=== PATIENT | male | born 1965 | race American Indian/Alaskan Native ===

== ENCOUNTER 2017-11-21 00:25 | Inpatient (IN) | payer MEDICARE ==
[2017-11-21] MEDS ORDERED: NACL 0.9% 1000 ML 1,000 ML IV ONE (00:44)
--- NOTE | 2017-11-21 00:51 | Emergency Department Report ---
ED General Adult HPI - General Chief complaint: Fever Stated complaint: FEVER Time Seen by Provider: 11/21/17 00:37 Source: patient, EMS Mode of arrival: Stretcher Limitations: No Limitations - History of Present Illness Initial comments: Patient is 62 years old male with history of end-stage renal disease on hemodialysis, hypertension diabetes and CVA, presents to the ER with fever started tonight. Patient denied cough, shortness of breath, urinary symptoms. He stated that his initial temperature was 103. - Related Data Allergies Allergy/AdvReac Type Severity Reaction Status Date / Time No Known Allergies Allergy Verified 11/21/17 00:51 ED Review of Systems ROS: Stated complaint: FEVER Other details as noted in HPI Comment: All other systems reviewed and negative Constitutional: chills, fever Respiratory: denies: cough, orthopnea, shortness of breath, SOB with exertion, SOB at rest, wheezing Cardiovascular: denies: chest pain, palpitations, dyspnea on exertion Gastrointestinal: denies: abdominal pain, nausea, vomiting, diarrhea, constipation, hematemesis Genitourinary: denies: urgency, dysuria, frequency, hematuria, discharge, testicular pain, testicular mass Musculoskeletal: denies: back pain, joint swelling Neurological: denies: headache, weakness, numbness, paresthesias, confusion, abnormal gait ED Past Medical Hx - Past Medical History Previous Medical History?: Yes Hx Hypertension: Yes Hx Diabetes: Yes Additional medical history: HF, CVA right side deficits - Surgical History Past Surgical History?: No - Social History Smoking Status: Former Smoker Substance Use Type: None ED Physical Exam - General Limitations: No Limitations General appearance: alert, in no apparent distress - Head Head exam: Present: atraumatic, normocephalic, normal inspection - Eye Eye exam: Present: normal appearance, PERRL, EOMI - ENT ENT exam: Present: normal exam, normal orophraynx, mucous membranes moist - Neck Neck exam: Present: normal inspection, full ROM. Absent: tenderness, meningismus, lymphadenopathy, thyromegaly - Respiratory Respiratory exam: Present: normal lung sounds bilaterally. Absent: respiratory distress, wheezes, rales, rhonchi, stridor, chest wall tenderness - Cardiovascular Cardiovascular Exam: Present: tachycardia - GI/Abdominal GI/Abdominal exam: Present: soft, normal bowel sounds, other (PEG tube in place , no erythema or redness.). Absent: distended, tenderness, guarding, rebound, rigid, organomegaly, mass, bruit, pulsatile mass, hernia - Extremities Exam Extremities exam: Present: normal inspection, full ROM, normal capillary refill. Absent: tenderness, pedal edema - Back Exam Back exam: Present: normal inspection. Absent: CVA tenderness (R), CVA tenderness (L) - Neurological Exam Neurological exam: Present: alert, oriented X3, CN II-XII intact - Skin Skin exam: Present: warm, intact, normal color ED Course Vital Signs 11/21/17 11/21/17 11/21/17 00:40 00:45 00:48 Temperature 99.4 F Pulse Rate 108 H Respiratory 20 18 Rate Blood Pressure 102/55 O2 Sat by Pulse 96 100 Oximetry ED Medical Decision Making - Lab Data Result diagrams: 11/21/17 00:51 11/21/17 00:51 - Radiology Data Radiology results: report reviewed Referring Physician: TACO CERVANTES Patient Name: POORNIMA TITUS Date of : 1965 Sex: Male Report Date: 2017-11-20 Report Status: Finalized Findings [facility] [address] [place] [address] XRay Report Signed Patient: POORNIMA TITUS MR#: [id number] : 1965 Acct:[id number] Age/Sex: 52 / M ADM Date: 11/21/17 Loc: ED Attending Dr: Ordering Physician: TACO CERVANTES Date of Service: 11/21/17 Procedure(s): XR chest 1V ap Accession Number(s): [id number] cc: TACO CERVANTES Fluoro Time In Minutes: FINAL REPORT EXAM: XR CHEST 1V AP HISTORY: Fever/Sepsis TECHNIQUE: A portable view of the chest was submitted. FINDINGS: There is patchy airspace disease throughout much of the right lung compatible with pneumonia. There is a small right-sided effusion. There additional atelectatic changes left lung base. Heart size is normal. The lungs are not overtly congested. There are EKG leads overlying the chest wall. The bones and soft tissues do not show any acute changes. IMPRESSION: Extensive pneumonia involving much of the right lung with small right-sided effusion. Patchy atelectatic changes left lung base. Transcribed By: RB Dictated By: AKUA PEDRAZA MD Electronically Authenticated By: AKUA PEDRAZA MD Signed Date/Time: 11/20/172126 DD/ 26 TD/TT: 11/20/172126 - Medical Decision Making Discussed with Dr. BALDERAS, inform about the patient, he agreed to admit to his service. Critical care attestation.: If time is entered above; I have spent that time in minutes in the direct care of this critically ill patient, excluding procedure time. ED Disposition Clinical Impression: Right lower lobe pneumonia, Fever Disposition: [id number] OP ADMIT IP TO THIS HOSP Is pt being admited?: Yes Condition: Stable Instructions: Bacterial Pneumonia (ED)
[2017-11-21 01:07] LABS: Basophils % (Auto) 0.5 % (0.0-1.8); Eosinophils # (Auto) 0.1 K/mm3 (0.0-0.4); Eosinophils % (Auto) 0.7 % (0.0-4.3); Hemoglobin 10.3 gm/dl (11.8-15.2); Lymphocytes # (Auto) 1.2 K/mm3 (1.2-5.4); Mean Corpuscular HGB Conc 32 % (32-34); Mean Corpuscular Hemoglobin 29 pg (28-32); Mean Corpuscular Volume 90 fl (84-94); Monocytes # (Auto) 0.5 K/mm3 (0.0-0.8); Monocytes % (Auto) 5.9 % (0.0-7.3); Platelet Count 173 K/mm3 (140-440); Red Blood Count 3.57 M/mm3 (3.65-5.03); Red Cell Distribution Width 17.4 % (13.2-15.2)
[2017-11-21 01:25] LABS: Albumin 3.1 g/dL (3.9-5); Calcium 8.8 mg/dL (8.4-10.2)
--- NOTE | 2017-11-21 01:31 | XRay Report ---
FINAL REPORT EXAM: XR CHEST 1V AP HISTORY: Fever/Sepsis TECHNIQUE: A portable view of the chest was submitted. FINDINGS: There is patchy airspace disease throughout much of the right lung compatible with pneumonia. There is a small right-sided effusion. There additional atelectatic changes left lung base. Heart size is normal. The lungs are not overtly congested. There are EKG leads overlying the chest wall. The bones and soft tissues do not show any acute changes. IMPRESSION: Extensive pneumonia involving much of the right lung with small right-sided effusion. Patchy atelectatic changes left lung base.
[2017-11-21] MEDS ORDERED: ATIVAN ONE (03:44)
[2017-11-21] MEDS ORDERED: ATIVAN IV ONE (03:45)
[2017-11-21] MEDS ORDERED: KEPPRA 1,000 MG/NS 0.75% 100ML 1,000 MG/100 ML BAG IV ONE ×2 (03:48→04:02)
[2017-11-21] MEDS ORDERED: D50W (25GM) Syringe IV ONE ×4 (04:45→05:08)
[2017-11-21 05:28] LABS: Albumin 2.7 g/dL (3.9-5); Calcium 8.2 mg/dL (8.4-10.2)
[2017-11-21] MEDS ORDERED: D5W 1,000 ML IV SCH (06:00)
[2017-11-21] MEDS ORDERED: ZOSYN/NS 3.375GM/50ML 3.375 GM/50 ML BAG IV SCH (06:00)
--- NOTE | 2017-11-21 07:28 | History and Physical Report ---
History of Present Illness Date of examination: 11/21/17 Date of admission: 11/21/17 02:19 Chief complaint: Chief complaint: Fever and cough of one day duration. History of present illness: History of Present Illness 62 years male with history of end-stage renal disease on hemodialysis, hypertension diabetes and CVA, presents to the ER with fever of 1 day duration. No cough, shortness of breath, urinary symptoms. He stated that his initial temperature was 103.No chest pain.had seizures in the ER and was found to have a blood glucose of 20 which may have caused the seizures. No shortness of breath. No recent travel. - Past Medical History Previous Medical History?: Yes Hx Hypertension: Yes Hx Diabetes: Yes Additional medical history: HF, CVA right side deficits - Surgical History Past Surgical History?: No - Social History Smoking Status: Former Smoker Substance Use Type: None Family history hypertension Review of Systems Stated complaint: FEVER Other details as noted in HPI Comment: All other systems reviewed and negative Constitutional: chills, fever Respiratory: denies: cough, orthopnea, shortness of breath, SOB with exertion, SOB at rest, wheezing Cardiovascular: denies: chest pain, palpitations, dyspnea on exertion Gastrointestinal: denies: abdominal pain, nausea, vomiting, diarrhea, constipation, hematemesis Genitourinary: denies: urgency, dysuria, frequency, hematuria, discharge, testicular pain, testicular mass Musculoskeletal: denies: back pain, joint swelling Neurological: denies: headache, weakness, numbness, paresthesias, confusion, abnormal gait Medications and Allergies Allergies Allergy/AdvReac Type Severity Reaction Status Date / Time No Known Allergies Allergy Verified 11/21/17 00:51 Active Meds: Active Medications Dextrose (D5w) 1,000 mls @ 42 mls/hr IV DIRECT MULU Last Admin: 11/21/17 05:30 Dose: 42 mls/hr Piperacillin Sod/Tazobactam Sod (Zosyn/Ns 2.25 Gm/50ml) 2.25 gm in 50 mls @ 100 mls/hr IV Q6HR [facility] Exam - Constitutional Vitals: Temp Pulse Resp BP Pulse Ox 99.4 F 91 H 16 125/74 99 11/21/17 00:45 11/21/17 04:00 11/21/17 04:00 11/21/17 04:00 11/21/17 04:00 General appearance: Present: no acute distress, well-nourished, other (patient had seizures in the emergency lasting for 2 minutes in the emergency room. Consistent with tonic-clonic seizures) - EENT Eyes: Present: PERRL ENT: hearing intact, clear oral mucosa - Neck Neck: Present: supple, normal ROM - Respiratory Respiratory effort: normal Respiratory: bilateral: CTA - Cardiovascular Heart rate: 76 Rhythm: regular Heart Sounds: Present: S1 & S2. Absent: rub, click - Extremities Extremities: no ischemia, pulses intact, pulses symmetrical, No edema Peripheral Pulses: within normal limits - Abdominal General gastrointestinal: Present: soft, non-tender, non-distended, normal bowel sounds Male genitourinary: Present: normal - Rectal Rectal Exam: deferred - Integumentary Integumentary: Present: clear, warm, dry - Musculoskeletal Musculoskeletal: right sided weakness - Psychiatric Psychiatric: appropriate mood/affect, intact judgment & insight, depressed - Neurologic Neurologic: CNII-XII intact, focal deficits (right-sided weakness present 3 /5 POWER), moves all extremities - Allied Health Allied health notes reviewed: nursing, case management Results - Labs CBC & Chem 7: 11/21/17 00:51 11/21/17 05:07 Labs: Laboratory Last Values WBC 8.3 K/mm3 (4.5-11.0) 11/21/17 00:51 RBC 3.57 M/mm3 (3.65-5.03) L 11/21/17 00:51 Hgb 10.3 gm/dl (11.8-15.2) L 11/21/17 00:51 Hct 32.0 % (35.5-45.6) L 11/21/17 00:51 MCV 90 fl (84-94) 11/21/17 00:51 MCH 29 pg (28-32) 11/21/17 00:51 MCHC 32 % (32-34) 11/21/17 00:51 RDW 17.4 % (13.2-15.2) H 11/21/17 00:51 Plt Count 173 K/mm3 (140-440) 11/21/17 00:51 Lymph % (Auto) 14.0 % (13.4-35.0) 11/21/17 00:51 King % (Auto) 5.9 % (0.0-7.3) 11/21/17 00:51 Eos % (Auto) 0.7 % (0.0-4.3) 11/21/17 00:51 Baso % (Auto) 0.5 % (0.0-1.8) 11/21/17 00:51 Lymph # 1.2 K/mm3 (1.2-5.4) 11/21/17 00:51 King # 0.5 K/mm3 (0.0-0.8) 11/21/17 00:51 Eos # 0.1 K/mm3 (0.0-0.4) 11/21/17 00:51 Baso # 0.0 K/mm3 (0.0-0.1) 11/21/17 00:51 Seg Neutrophils % 78.9 % (40.0-70.0) H 11/21/17 00:51 Seg Neutrophils # 6.5 K/mm3 (1.8-7.7) 11/21/17 00:51 Sodium 138 mmol/L (137-145) 11/21/17 05:07 Potassium 3.0 mmol/L (3.6-5.0) L 11/21/17 05:07 Chloride 98.1 mmol/L (98-107) 11/21/17 05:07 Carbon Dioxide 29 mmol/L (22-30) 11/21/17 05:07 Anion Gap 14 mmol/L 11/21/17 05:07 BUN 45 mg/dL (9-20) H 11/21/17 05:07 Creatinine 4.6 mg/dL (0.8-1.5) H 11/21/17 05:07 Estimated GFR 16 ml/min 11/21/17 05:07 BUN/Creatinine Ratio 10 % 11/21/17 05:07 Glucose 215 mg/dL (75-100) H 11/21/17 05:07 POC Glucose 166 (70-105) H 11/21/17 05:41 Lactic Acid 0.60 mmol/L (0.7-2.0) L 11/21/17 03:33 Calcium 8.2 mg/dL (8.4-10.2) L 11/21/17 05:07 Total Bilirubin 0.30 mg/dL (0.1-1.2) 11/21/17 05:07 AST 14 units/L (5-40) 11/21/17 05:07 ALT 18 units/L (7-56) 11/21/17 05:07 Alkaline Phosphatase 58 units/L (35-129) 11/21/17 05:07 Total Protein 6.6 g/dL (6.3-8.2) 11/21/17 05:07 Albumin 2.7 g/dL (3.9-5) L 11/21/17 05:07 Albumin/Globulin Ratio 0.7 % 11/21/17 05:07 Short CBC 11/21/17 Range/Units 00:51 WBC 8.3 (4.5-11.0) K/mm3 Hgb 10.3 L (11.8-15.2) gm/dl Hct 32.0 L (35.5-45.6) % Plt Count 173 (140-440) K/mm3 BMP 11/21/17 11/21/17 00:51 05:07 Sodium 137 138 Potassium 3.5 L 3.0 L Chloride 95.8 L 98.1 Carbon Dioxide 28 29 BUN 47 H 45 H Creatinine 4.6 H 4.6 H Glucose 128 H 215 H Calcium 8.8 8.2 L Liver Function 11/21/17 11/21/17 Range/Units 00:51 05:07 Total Bilirubin 0.40 0.30 (0.1-1.2) mg/dL AST 14 14 (5-40) units/L ALT 18 18 (7-56) units/L Alkaline Phosphatase 63 58 (35-129) units/L Albumin 3.1 L 2.7 L (3.9-5) g/dL - Imaging and Cardiology EKG: report reviewed Chest x-ray: report reviewed (extensive pneumonia involving much of the right lung with small right-sided effusion) Assessment and Plan Advance Directives: Yes (full code) VTE prophylaxis?: Chemical Plan of care discussed with patient/family: Yes - Patient Problems (1) Right lower lobe pneumonia Current Visit: Yes Status: Acute Qualifiers: Pneumonia type: aspiration pneumonia Plan to address problem: Possible aspiration pneumonia secondary to his cerebrovascular accident.patient initiated on Rocephin and Zithromax. IV fluids. 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 (3) Hypertension Current Visit: Yes Status: Chronic Qualifiers: Hypertension type: essential hypertension Qualified Code(s): I10 - Essential (primary) hypertension Plan to address problem: patient initiated on losartan 100 mg once a day (4) Chronic kidney disease Current Visit: Yes Status: Chronic Qualifiers: Chronic kidney disease stage: stage 4 (severe) Qualified Code(s): N18.4 - Chronic kidney disease, stage 4 (severe) Plan to address problem: patient is patient last 's visit was reconsulted (5) Seizure disorder Current Visit: Yes Status: Chronic Plan to address problem: continue IV Keppra.patient had a low blood sugar of 20 which may be responsible for the tonic clonic seizures witnessed by me in the emergency room along with Dr Carlisle.May not need to be on basket bottom machine operator AED's(antiepileptic drugs) (6) Hypoglycemia Current Visit: Yes Status: Acute Plan to address problem: was given 2 A of D50 W (7) DVT prophylaxis Current Visit: Yes Status: Acute Plan to address problem: on Lovenox
[2017-11-21] MEDS: ZOSYN/NS 2.25 GM/50ML 2.25 GM/50 ML BAG IV SCH ×3 (07:29→22:30)
[2017-11-21] MEDS ORDERED: K-DUR PO ONE (09:42)
--- NOTE | 2017-11-21 09:46 | Event Note ---
Date: 11/21/17 Patient seen and examined He had a full history and physical earlier this morning Patient is groggy and confused Opens eyes to voice stimulus but goes back to sleep and is not following simple commands Chart and labs reviewed I have ordered 20 mEq of KCl one-time dose Await nephrology consult Continue Zosyn for his right lung infiltrate Monitor labs closely
[2017-11-21] MEDS ORDERED: POTASSIUM CHLORIDE FEEDTUBE ONE (11:00)
[2017-11-21] MEDS: NOVOLOG SUB-Q SCH ×3 (11:05→22:12)
[2017-11-21] MEDS: KEPPRA 500 MG/NS 0.82% 100 ML 500 MG/100 ML BAG IV SCH ×2 (11:23→22:10)
[2017-11-21] MEDS ORDERED: D50W (25GM) Syringe IV STA (11:24)
[2017-11-21] MEDS ORDERED: D10W IV SCH (12:00)
[2017-11-21] MEDS ORDERED: D10W 1,000 ML IV SCH (12:00)
--- NOTE | 2017-11-21 16:06 | Consultation ---
History of Present Illness - Reason for Consult Consult date: 11/21/17 end stage renal disease Requesting physician: BEA BALDERAS - History of Present Illness This is a 52 year old male with PMH of ESRD on HD, CVA, diabetes mellitus type 2 insulin dependent, seizures, hypertension, and anemia who presented to [facility] today with complaints of fever and temperature of 103, found to be hypoglyemic in ED with blood glucose level in 20s per medical record. Patient denies chest pain, shortness of breath, abdominal pain, chills, nausea, vomiting, diarrhea, constipation, bloody stool, black stools, abdominal pain, or dysuria. S/p Chest X Ray on 11/21/17 showed extensive pneumonia involving much of the right lung with small right sided pleural effusion. We were consulted to evaluate this patient who has ESRD and requires HD and renal management. This patient undergoes outpatient HD every Tuesday, , and Tuesday. Patient states his last HD treatment was Tuesday11/19/17. Past History Past Medical History: anemia, dialysis, ESRD, hypertension, stroke Past Surgical History: Other (Left AVF placement) Medications and Allergies Allergies Allergy/AdvReac Type Severity Reaction Status Date / Time No Known Allergies Allergy Verified 11/21/17 00:51 Home Medications Medication Instructions Recorded Confirmed Last Taken Type ALPRAZolam 0.25 mg PO Q12H PRN 11/21/17 11/21/17 11/18/17 History Aspirin 325 mg FEEDTUBE DAILY 11/21/17 11/21/17 11/20/17 History AtorvaSTATin 10 mg PO QHS 11/21/17 11/21/17 11/19/17 History Basaglar Kwikpen U-100 20 units SQ QAM 11/21/17 11/21/17 11/20/17 History Basaglar Kwikpen U-100 30 units SQ QHS 11/21/17 11/21/17 11/19/17 History Carvedilol [Coreg] 12.5 mg PO DAILY 11/21/17 11/21/17 11/19/17 History Lisinopril 5 mg pe PO DAILY 11/21/17 11/21/17 11/20/17 History Lyrica 50 mg PO Q8H PRN 11/21/17 11/21/17 11/20/17 History Pooja-Pippa Rx Tablet 1 tab PO DAILY 11/21/17 11/21/17 11/19/17 History Renagel 800 mg PO AC 11/21/17 11/21/17 11/18/17 History Singulair 10 mg PO DAILY PRN 11/21/17 11/21/17 11/09/17 History Tessalon Perles 100 mg PO Q8H PRN 11/21/17 11/21/17 11/09/17 History Tylenol /Codeine # 3 tab 30 mg PO Q6H PRN 11/21/17 11/21/17 11/17/17 History Active Meds: Active Medications Levetiracetam (Keppra 500 Mg/Ns 0.82% 100 Ml) 500 mg in 100 mls @ 400 mls/hr IV Q12HR MULU Last Admin: 11/21/17 11:23 Dose: 400 mls/hr Piperacillin Sod/Tazobactam Sod (Zosyn/Ns 2.25 Gm/50ml) 2.25 gm in 50 mls @ 100 mls/hr IV Q8HR MULU Last Admin: 11/21/17 15:11 Dose: 100 mls/hr Dextrose (D10w) 1,000 mls @ 40 mls/hr IV DIRECT MULU Stop: 11/22/17 11:59 Insulin Aspart (Novolog) 0 units SUB-Q ACHS MULU PRN Reason: Protocol Last Admin: 11/21/17 11:05 Dose: Not Given Review of Systems Constitutional: fever, weakness, no chills Ears, nose, mouth and throat: no headache Cardiovascular: no chest pain, no shortness of breath Respiratory: no cough, no shortness of breath, no dyspnea on exertion Gastrointestinal: no abdominal pain, no nausea, no vomiting, no diarrhea, no constipation, no melena Genitourinary Male: no dysuria, no hematuria Musculoskeletal: muscle weakness, no arm numbness/tingling, no leg numbness/ tingling Integumentary: no wounds Neurological: gait dysfunction (h/o CVA), no headaches Endocrine: low blood sugars Exam - Vital Signs Vital signs: Vital Signs Pulse Resp BP Pulse Ox 108 H 20 102/55 96 11/21/17 00:40 11/21/17 00:40 11/21/17 00:40 11/21/17 00:40 - General Appearance General appearance: other (awake, follows commands, no acute distress) EENT: ATNC Neck: Present: neck supple Respiratory: Other (Lung sounds decreased bilaterally, unlabored) Heart: regular, S1S2, other (ACCESS: Left AVF with positive thrill and bruit noted) Gastrointestinal: Present: normoactive bowel sounds (PEG tube intact). Absent: tenderness Integumentary: warm and dry Neurologic: alert and oriented x3 Musculoskeletal: Present: other (no edema to both lower extremities) Psychiatric: cooperative Results - Lab Results 11/21/17 00:51 11/21/17 05:07 Most recent lab results Calcium 8.2 mg/dL (8.4-10.2) L 11/21/17 05:07 Assessment and Plan - Patient Problems (1) Hypoglycemia Current Visit: Yes Status: Acute Plan to address problem: S/p D50 administrations Start on D10 infusion As per primary team (2) Right lower lobe pneumonia Current Visit: Yes Status: Acute Qualifiers: Pneumonia type: aspiration pneumonia Plan to address problem: Started on Zosyn Blood cultures pending S/p Chest X Ray on 11/21/17 showed extensive pneumonia involving much of the right lung with small right sided pleural effusion Influenza A and B negative As per primary team (3) ESRD on hemodialysis Current Visit: Yes Status: Acute Plan to address problem: Labs reviewed No acute indication for HD today Hemodialysis tomorrow for gentle ultrafiltration and clearance via Left AVF HD prescription adjusted to [facility] for hypokalemia management Assess need for HD on daily basis Left AVF with positive thrill and bruit noted Renally dose medications Blood pressure marginally low in the 90s to 100s systolic, recommend holding any blood pressure medications Obtain daily weight Strict intake and output Renal plan discussed with Dr Bishop Continue supportive therapy (4) Hypokalemia Current Visit: Yes Status: Acute Plan to address problem: Replete potassium Adjusted HD prescription to [facility] for hypokalemia management Monitor daily labs (5) Seizure disorder Current Visit: Yes Status: Chronic Plan to address problem: On Keppra As per primary team (6) Type 2 diabetes mellitus Current Visit: Yes Status: Chronic Qualifiers: Diabetes mellitus complication status: without complication Diabetes mellitus longterm insulin use: with longterm use Qualified Code(s): E11.9 - Type 2 diabetes mellitus without complications; 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
[2017-11-22 06:09] LABS: Hematocrit 28.8 % (35.5-45.6); Hemoglobin 9.3 gm/dl (11.8-15.2); Mean Corpuscular HGB Conc 32 % (32-34); Mean Corpuscular Hemoglobin 29 pg (28-32); Mean Corpuscular Volume 90 fl (84-94); Platelet Count 151 K/mm3 (140-440); Red Blood Count 3.21 M/mm3 (3.65-5.03); Red Cell Distribution Width 17.4 % (13.2-15.2)
[2017-11-22 06:35] LABS: Calcium 8.3 mg/dL (8.4-10.2); Magnesium 1.7 mg/dL (1.7-2.3)
[2017-11-22] MEDS: ZOSYN/NS 2.25 GM/50ML 2.25 GM/50 ML BAG IV SCH ×3 (06:55→14:48)
[2017-11-22] MEDS ORDERED: NACL 0.9% 100 ML IV PRN (07:00)
[2017-11-22] MEDS: NOVOLOG SUB-Q SCH ×4 (08:38→21:45)
[2017-11-22] MEDS ORDERED: NACL 0.9 (PRIMING MACHINE ONLY DIALYSIS) MC ONE (12:31)
--- NOTE | 2017-11-22 12:46 | Progress Note ---
Assessment and Plan (1) Hypoglycemia Current Visit: Yes Status: Acute Plan to address problem: resolved As per primary team (2) Right lower lobe pneumonia Current Visit: Yes Status: Acute Qualifiers: Pneumonia type: aspiration pneumonia Plan to address problem: Started on Zosyn Blood cultures pending S/p Chest X Ray on 11/21/17 showed extensive pneumonia involving much of the right lung with small right sided pleural effusion Influenza A and B negative As per primary team (3) ESRD on hemodialysis Current Visit: Yes Status: Acute Plan to address problem: Hemodialysis today for gentle ultrafiltration and clearance via Left AVF will consult dr Nolasco for poor function AVF Left AVF with positive thrill and bruit noted Renally dose medications Blood pressure marginally low in the 90s to 100s systolic, recommend holding any blood pressure medications Obtain daily weight Strict intake and output (4) Hypokalemia Current Visit: Yes Status: Acute Plan to address problem: will adjust dialysate bath (5) Seizure disorder Current Visit: Yes Status: Chronic Plan to address problem: On Keppra As per primary team (6) Type 2 diabetes mellitus Current Visit: Yes Status: Chronic Qualifiers: Diabetes mellitus complication status: without complication Diabetes mellitus [facility] insulin use: with [facility] use Qualified Code(s): E11.9 - Type 2 diabetes mellitus without complications; Z79.4 - [facility] (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 of insulin; Z79.4 - keno terminal operator (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 of insulin; Z79.4 - keno terminal operator ( 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 of insulin; Z79.4 - keno terminal operator (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 of insulin Plan to address problem: As per primary team Subjective Date of service: 11/22/17 Principal diagnosis: ESRD Interval history: seen during HD, tolerating Objective - Vital Signs Vital signs: Vital Signs - 12hr 11/22/17 11/22/17 11/22/17 04:18 09:00 09:23 Temperature 98.2 F 98.4 F Pulse Rate 87 80 81 Respiratory 18 18 Rate Blood Pressure 111/70 137/77 120/72 Blood Pressure 111/69 [Left] O2 Sat by Pulse 99 100 Oximetry 11/22/17 11/22/17 11/22/17 09:30 09:45 10:00 Temperature Pulse Rate 88 56 L 82 Respiratory Rate Blood Pressure 123/73 118/58 121/54 Blood Pressure [Left] O2 Sat by Pulse Oximetry 11/22/17 11/22/17 11/22/17 10:15 10:30 10:45 Temperature Pulse Rate 66 79 81 Respiratory Rate Blood Pressure 113/51 114/66 128/58 Blood Pressure [Left] O2 Sat by Pulse Oximetry 11/22/17 11/22/17 11:15 11:45 Temperature Pulse Rate 75 79 Respiratory Rate Blood Pressure 124/68 126/61 Blood Pressure [Left] O2 Sat by Pulse Oximetry - General Appearance General appearance: well-developed, well-nourished EENT: ATNC, PERRL, mucous membranes moist Neck: no JVD, no carotid bruit Respiratory: Present: Clear to Ascultation. Absent: Rales, Ronchi Cardiology: regular, S1S2 Gastrointestinal: normoactive bowel sounds, no tenderness, no distended Integumentary: no rash, warm and dry Neurologic: no focal deficit, no asterixis, alert and oriented x3 Musculoskeletal: other (no edema in BLE) Psychiatric: mood/affect appropriate, cooperative - Lab 11/22/17 05:15 11/22/17 05:15 Most recent lab results Calcium 8.3 mg/dL (8.4-10.2) L 11/22/17 05:15 Phosphorus 4.40 mg/dL (2.5-4.5) 11/22/17 05:15 Magnesium 1.70 mg/dL (1.7-2.3) 11/22/17 05:15
[2017-11-22] MEDS: KEPPRA 500 MG/NS 0.82% 100 ML 500 MG/100 ML BAG IV SCH ×2 (14:42→21:14)
[2017-11-22] MEDS ORDERED: ALPRAZOLAM 0.25 MG PO PRN (16:52)
--- NOTE | 2017-11-22 16:56 | Progress Note ---
Assessment and Plan Advance Directives: Yes (full code) VTE prophylaxis?: Chemical Plan of care discussed with patient/family: Yes - Patient Problems (1) Right lower lobe pneumonia Current Visit: Yes Status: Acute Qualifiers: Pneumonia type: aspiration pneumonia Plan to address problem: Possible aspiration pneumonia secondary to his cerebrovascular accident. Continue with Rocephin and Zithromax. IV fluids. (2) Type 2 diabetes mellitus Current Visit: Yes Status: Chronic Qualifiers: Diabetes mellitus complication status: without complication Diabetes mellitus buttermaker insulin use: with long-term use Qualified Code(s): E11.9 - Type 2 diabetes mellitus without complications; Z79.4 - senior living (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 of insulin; Z79.4 - senior living (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 of insulin; Z79.4 - technician terminal and repeater ( 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 of insulin; Z79.4 - technician terminal and repeater (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 of insulin Plan to address problem: patient was hypoglycemic in ER because of which patient had tonic-clonic seizures continue oral hypoglycemics but decrease the dosage as they are equally responsible for possible Killing of patient . (3) Hypertension Current Visit: Yes Status: Chronic Qualifiers: Hypertension type: essential hypertension Qualified Code(s): I10 - Essential (primary) hypertension Plan to address problem: patient initiated on losartan 100 mg once a day (4) Chronic kidney disease Current Visit: Yes Status: Chronic Qualifiers: Chronic kidney disease stage: stage 4 (severe) Qualified Code(s): N18.4 - Chronic kidney disease, stage 4 (severe) Plan to address problem: patient is patient last 's visit was reconsulted (5) Seizure disorder Current Visit: Yes Status: Chronic Plan to address problem: continue IV Keppra.patient had a low blood sugar of 20 which may be responsible for the tonic clonic seizures witnessed by me in the emergency room along On PO Keppra (6) Hypoglycemia - resolved Current Visit: Yes Status: Acute Plan to address problem: (7) DVT prophylaxis Current Visit: Yes Status: Acute Plan to address problem: on Lovenox Subjective Date of service: 11/22/17 Principal diagnosis: Aspiration Pneumonia, ESRD Interval history: No new complaint. Had HD today. Objective - Constitutional Vitals: Vital Signs - 12hr 11/22/17 11/22/17 11/22/17 09:00 09:23 09:30 Temperature 98.4 F Pulse Rate 80 81 88 Respiratory 18 Rate Blood Pressure 137/77 120/72 123/73 Blood Pressure 111/69 [Left] O2 Sat by Pulse 100 Oximetry 11/22/17 11/22/17 11/22/17 09:45 10:00 10:15 Temperature Pulse Rate 56 L 82 66 Respiratory Rate Blood Pressure 118/58 121/54 113/51 Blood Pressure [Left] O2 Sat by Pulse Oximetry 11/22/17 11/22/17 11/22/17 10:30 10:45 11:15 Temperature Pulse Rate 79 81 75 Respiratory Rate Blood Pressure 114/66 128/58 124/68 Blood Pressure [Left] O2 Sat by Pulse Oximetry 11/22/17 11/22/17 11/22/17 11:45 12:00 12:15 Temperature Pulse Rate 79 82 81 Respiratory Rate Blood Pressure 126/61 117/70 117/70 Blood Pressure [Left] O2 Sat by Pulse Oximetry 11/22/17 11/22/17 12:30 12:45 Temperature Pulse Rate 81 82 Respiratory Rate Blood Pressure 125/69 115/71 Blood Pressure [Left] O2 Sat by Pulse Oximetry General appearance: Present: no acute distress, well-nourished - EENT Eyes: PERRL, EOM intact - Neck Neck: supple, normal ROM - Respiratory Respiratory effort: normal Respiratory: bilateral: diminished - Cardiovascular Rhythm: regular Heart Sounds: Present: S1 & S2. Absent: gallop, rub Extremities: pulses intact, No edema, normal color, Full ROM - Gastrointestinal General gastrointestinal: Present: soft, non-tender, non-distended, normal bowel sounds - Integumentary Integumentary: clear, warm, dry - Musculoskeletal Musculoskeletal: 1, strength equal bilaterally - Neurologic Neurologic: moves all extremities - Psychiatric Psychiatric: memory intact, appropriate mood/affect, intact judgment & insight - Labs CBC & Chem 7: 11/22/17 05:15 11/22/17 05:15 Labs: Abnormal lab results 11/21/17 11/22/17 11/22/17 Range/Units 21:32 05:15 05:15 RBC 3.21 L (3.65-5.03) M/mm3 Hgb 9.3 L (11.8-15.2) gm/dl Hct 28.8 L (35.5-45.6) % RDW 17.4 H (13.2-15.2) % BUN 45 H (9-20) mg/dL Creatinine 4.8 H (0.8-1.5) mg/dL Glucose 289 H (75-100) mg/dL POC Glucose 142 H (70-105) Calcium 8.3 L (8.4-10.2) mg/dL 11/22/17 Range/Units 05:26 RBC (3.65-5.03) M/mm3 Hgb (11.8-15.2) gm/dl Hct (35.5-45.6) % RDW (13.2-15.2) % BUN (9-20) mg/dL Creatinine (0.8-1.5) mg/dL Glucose (75-100) mg/dL POC Glucose 110 H (70-105) Calcium (8.4-10.2) mg/dL
[2017-11-22] MEDS ORDERED: NON-FORMULARY (Aspirin 81 MG) FEEDTUBE SCH (17:00)
[2017-11-22] MEDS ORDERED: XANAX PO PRN (17:01)
[2017-11-22] MEDS: ZITHROMAX 500 MG in NACL 0.9% 250ML 250 ML IV SCH (18:48)
[2017-11-22] MEDS: COREG PO SCH (18:49)
[2017-11-22] MEDS: cefTRIAXone 1 GM in NACL 0.9% 20 ML IV SCH (21:13)
[2017-11-22] MEDS ORDERED: NON-FORMULARY (Atorvastatin 10 MG) PO SCH (22:00)
[2017-11-23 06:13] LABS: Basophils # (Auto) 0.1 K/mm3 (0.0-0.1); Basophils % (Auto) 1.2 % (0.0-1.8); Eosinophils # (Auto) 0.5 K/mm3 (0.0-0.4); Eosinophils % (Auto) 7.8 % (0.0-4.3); Hematocrit 28.7 % (35.5-45.6); Hemoglobin 9.2 gm/dl (11.8-15.2); Lymphocytes # (Auto) 1.6 K/mm3 (1.2-5.4); Mean Corpuscular HGB Conc 32 % (32-34); Mean Corpuscular Hemoglobin 29 pg (28-32); Mean Corpuscular Volume 90 fl (84-94); Monocytes # (Auto) 0.5 K/mm3 (0.0-0.8); Monocytes % (Auto) 8.3 % (0.0-7.3); Platelet Count 166 K/mm3 (140-440); Red Blood Count 3.19 M/mm3 (3.65-5.03)
[2017-11-23 06:35] LABS: Albumin 2.8 g/dL (3.9-5); Calcium 8.5 mg/dL (8.4-10.2); Magnesium 1.5 mg/dL (1.7-2.3)
[2017-11-23] MEDS: NOVOLOG SUB-Q SCH ×4 (08:13→22:39)
[2017-11-23] MEDS: COREG PO SCH (09:56)
[2017-11-23] MEDS: BABY ASPIRIN FEEDTUBE SCH (09:56)
[2017-11-23] MEDS: KEPPRA PO SCH ×2 (09:56→22:38)
[2017-11-23] MEDS ORDERED: ZESTRIL PO SCH (10:00)
[2017-11-23] MEDS ORDERED: ROCEPHIN/NS 1 GM/50 ML 1 GM/50 ML BAG IV SCH (10:00)
[2017-11-23] MEDS ORDERED: LISINOPRIL 5 MG PO SCH (10:00)
[2017-11-23] MEDS ORDERED: ALUM-MAG HYDROX-SIMETH 200-200-20MG/5ML PO ONE (10:30)
[2017-11-23] MEDS: PEPCID PO SCH (10:47)
--- NOTE | 2017-11-23 14:08 | Progress Note ---
Assessment and Plan (1) Hypoglycemia Current Visit: Yes Status: Acute Plan to address problem: resolved As per primary team (2) Right lower lobe pneumonia Current Visit: Yes Status: Acute Qualifiers: Pneumonia type: aspiration pneumonia Plan to address problem: On ABx S/p Chest X Ray on 11/21/17 showed extensive pneumonia involving much of the right lung with small right sided pleural effusion Influenza A and B negative As per primary team (3) ESRD on hemodialysis Current Visit: Yes Status: Acute Plan to address problem: On HD via Left AVF, s/p HD yesterday, no HD today, HD tomorrow. HD TTS while inpatient but will eval daily. consult dr Nolasco for poor function AVF Left AVF with positive thrill and bruit noted Renally dose medications Blood pressure marginally low, Will hold lisinopril for now. Obtain daily weight Strict intake and output (4) Hypokalemia Current Visit: Yes Status: Acute Plan to address problem: will adjust dialysate bath (5) Seizure disorder Current Visit: Yes Status: Chronic Plan to address problem: On Keppra As per primary team (6) Type 2 diabetes mellitus Current Visit: Yes Status: Chronic Qualifiers: Diabetes mellitus complication status: without complication Diabetes mellitus cattle sticker insulin use: with cattle sticker use Qualified Code(s): E11.9 - Type 2 diabetes mellitus without complications; Z79.4 - cigarette machines mechanic (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 of insulin; Z79.4 - [facility] (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 of insulin; Z79.4 - [facility] ( 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 of insulin; Z79.4 - cigarette machines mechanic (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 of insulin Plan to address problem: As per primary team Subjective Date of service: 11/23/17 Principal diagnosis: Aspiration Pneumonia, ESRD Interval history: Denies Cp/SHOB. Tolerated HD yesterday. Objective - Exam Narrative Exam: General appearance: well-developed, well-nourished EENT: ATNC, PERRL, mucous membranes moist Neck: no JVD, no carotid bruit Respiratory: Present: Clear to Ascultation. Absent: Rales, Ronchi Cardiology: regular, S1S2 Gastrointestinal: normoactive bowel sounds, no tenderness, no distended Integumentary: no rash, warm and dry Neurologic: no focal deficit, no asterixis, alert and oriented x3 Musculoskeletal: other (no edema in BLE) Psychiatric: mood/affect appropriate, cooperative - Vital Signs Vital signs: Vital Signs - 12hr 11/23/17 11/23/17 11/23/17 04:28 07:32 09:56 Temperature 99.0 F 98.7 F Pulse Rate 89 Respiratory 22 18 Rate Blood Pressure 117/79 123/72 126/70 O2 Sat by Pulse 96 Oximetry 11/23/17 13:39 Temperature 98.4 F Pulse Rate 84 Respiratory 16 Rate Blood Pressure 98/56 O2 Sat by Pulse 97 Oximetry - Lab 11/23/17 05:41 11/23/17 05:41 Most recent lab results Calcium 8.5 mg/dL (8.4-10.2) 11/23/17 05:41 Phosphorus 2.80 mg/dL (2.5-4.5) D 11/23/17 05:41 Magnesium 1.50 mg/dL (1.7-2.3) L 11/23/17 05:41
[2017-11-23] MEDS: ZITHROMAX 500 MG in NACL 0.9% 250ML 250 ML IV SCH (17:44)
--- NOTE | 2017-11-23 20:41 | XRay Report ---
FINAL REPORT PROCEDURE: XR CHEST ROUTINE 2V TECHNIQUE: PA and lateral chest radiographs were obtained. CPT 09420 HISTORY: Pneumonia. COMPARISON: Chest radiograph dated 11/21/2017. FINDINGS: Heart: Cardiomegaly, may be slightly increased compared to prior exam. Mediastinum/Vessels: Aortic tortuosity. Lungs/Pleural space: Continued scattered patchy predominantly peribronchovascular airspace disease throughout the right lung. Slight increase in right pleural effusion. Continued left lower lobe linear opacity. Bony thorax: No acute osseous abnormality. Other: IMPRESSION: Possible mild worsening cardiomegaly. Also consider underlying pericardial effusion. Aortic tortuosity. Continued patchy right-sided airspace disease, slight increased right pleural effusion. Consider pneumonia/aspiration. Left lower lobe linear opacities unchanged.
[2017-11-23] MEDS: cefTRIAXone 1 GM in NACL 0.9% 20 ML IV SCH (22:38)
[2017-11-24 06:44] LABS: Basophils # (Auto) 0.1 K/mm3 (0.0-0.1); Basophils % (Auto) 1.3 % (0.0-1.8); Eosinophils # (Auto) 0.3 K/mm3 (0.0-0.4); Eosinophils % (Auto) 7.5 % (0.0-4.3); Hematocrit 28.5 % (35.5-45.6); Hemoglobin 9.1 gm/dl (11.8-15.2); Lymphocytes # (Auto) 1.8 K/mm3 (1.2-5.4); Lymphocytes % (Auto) 37.6 % (13.4-35.0); Mean Corpuscular HGB Conc 32 % (32-34); Mean Corpuscular Hemoglobin 29 pg (28-32); Mean Corpuscular Volume 91 fl (84-94); Monocytes # (Auto) 0.4 K/mm3 (0.0-0.8); Monocytes % (Auto) 8.8 % (0.0-7.3); Platelet Count 155 K/mm3 (140-440); Red Blood Count 3.14 M/mm3 (3.65-5.03); Red Cell Distribution Width 16.5 % (13.2-15.2)
[2017-11-24 07:02] LABS: Albumin 2.8 g/dL (3.9-5); Calcium 8.7 mg/dL (8.4-10.2)
[2017-11-24] MEDS: NOVOLOG SUB-Q SCH ×3 (08:00→18:35)
--- NOTE | 2017-11-24 09:43 | Progress Note ---
Assessment and Plan (1) Hypoglycemia Current Visit: Yes Status: Acute Plan to address problem: resolved As per primary team (2) Right lower lobe pneumonia Current Visit: Yes Status: Acute Qualifiers: Pneumonia type: aspiration pneumonia Plan to address problem: On ABx S/p Chest X Ray on 11/21/17 showed extensive pneumonia involving much of the right lung with small right sided pleural effusion Influenza A and B negative As per primary team (3) ESRD on hemodialysis Current Visit: Yes Status: Acute Plan to address problem: HD today for clearance and volume removal consult dr Nolasco for poor function AVF, notified stockroom inventory clerk that Dr Nolasco did not see the patient yet, I called Dr Lopez's cell phone and there was no answer, patient can be discharged from renal standpoint after HD today Renally dose medications Blood pressure marginally low, Will hold lisinopril for now. Obtain daily weight Strict intake and output (4) Hypokalemia Current Visit: Yes Status: Acute Plan to address problem: will adjust dialysate bath (5) Seizure disorder Current Visit: Yes Status: Chronic Plan to address problem: On Keppra As per primary team (6) Type 2 diabetes mellitus Current Visit: Yes Status: Chronic Qualifiers: Diabetes mellitus complication status: without complication Diabetes mellitus halfway insulin use: with watermaster use Qualified Code(s): E11.9 - Type 2 diabetes mellitus without complications; Z79.4 - long-term (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 of insulin; Z79.4 - long-term (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 of insulin; Z79.4 - long-term ( 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 of insulin; Z79.4 - long-term (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 of insulin Plan to address problem: As per primary team Subjective Date of service: 11/24/17 Principal diagnosis: Aspiration Pneumonia, ESRD Interval history: denies acute sx, requesting to home Objective - Vital Signs Vital signs: Vital Signs - 12hr 11/23/17 11/23/17 11/24/17 22:56 23:00 00:31 Temperature 98.7 F Pulse Rate 86 73 88 Respiratory 20 Rate Blood Pressure 145/89 O2 Sat by Pulse 96 96 Oximetry 11/24/17 11/24/17 04:51 07:28 Temperature 98.8 F 98.0 F Pulse Rate 82 87 Respiratory 22 16 Rate Blood Pressure 134/93 129/75 O2 Sat by Pulse 97 96 Oximetry - General Appearance General appearance: well-developed, well-nourished EENT: ATNC, PERRL, mucous membranes moist Neck: no JVD, no thyromegaly, no carotid bruit Respiratory: Present: Clear to Ascultation. Absent: Rales, Ronchi Cardiology: regular, S1S2 Gastrointestinal: normoactive bowel sounds, no tenderness, no distended, no guarding Integumentary: no rash, warm and dry Neurologic: no focal deficit, no asterixis, alert and oriented x3 Musculoskeletal: other (no edema in BLE) Psychiatric: mood/affect appropriate, cooperative - Lab 11/24/17 05:59 11/24/17 05:59 Most recent lab results Calcium 8.7 mg/dL (8.4-10.2) 11/24/17 05:59 Phosphorus 2.80 mg/dL (2.5-4.5) D 11/23/17 05:41 Magnesium 1.50 mg/dL (1.7-2.3) L 11/23/17 05:41
--- NOTE | 2017-11-24 12:01 | Discharge Summary ---
Providers - Providers Date of Admission: 11/21/17 02:19 Attending physician: LUL LAZO MD 11/21/17 08:02 Consult to Physician [CONS] Routine Consulting Provider: SANDHYA BOWEN Reason For Exam: ESRD Place consult to:: DR. WESLEY Notified:: DR. WESLEY Phone number called:: [phone] Was contact made?: Yes If yes, spoke with:: DR. WESLEY Time called:: 10:23 Comment:: WON NOTIFIED 11/22/17 12:43 Consult to Physician [CONS] Routine Consulting Provider: CELESTINO SENIOR Reason For Exam: malfunctioned AVF Place consult to:: Dr Doll Notified:: china Mercado Phone number called:: [phone] Was contact made?: Yes If yes, spoke with:: Dr Doll Time called:: 17:55 Primary care physician: SMITH SINGH Hospitalization Condition: Stable Hospital course: 62 years male with history of end-stage renal disease on hemodialysis, hypertension diabetes and CVA, presents to the ER with fever of 1 day duration. No cough, shortness of breath, urinary symptoms. He stated that his initial temperature was 103.No chest pain.had seizures in the ER and was found to have a blood glucose of 20 which may have caused the seizures. No shortness of breath. No recent travel. 1) Right lower lobe pneumonia Current Visit: Yes Status: Acute Qualifiers: Pneumonia type: aspiration pneumonia Plan to address problem: Possible aspiration pneumonia secondary to his cerebrovascular accident. Continue with Rocephin and Zithromax. IV fluids. (2) Type 2 diabetes mellitus Current Visit: Yes Status: Chronic Qualifiers: Diabetes mellitus complication status: without complication Diabetes mellitus fpc insulin use: with fpc use Qualified Code(s): E11.9 - Type 2 diabetes mellitus without complications; Z79.4 - senior living (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 of insulin; Z79.4 - senior living (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 of insulin; Z79.4 - senior living ( 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 of insulin; Z79.4 - medical terminologist (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 of insulin Plan to address problem: patient was hypoglycemic in ER because of which patient had tonic-clonic seizures continue oral hypoglycemics but decrease the dosage as they are equally responsible for possible Killing of patient . (3) Hypertension Current Visit: Yes Status: Chronic Qualifiers: Hypertension type: essential hypertension Qualified Code(s): I10 - Essential (primary) hypertension Plan to address problem: patient initiated on losartan 100 mg once a day (4) Chronic kidney disease Current Visit: Yes Status: Chronic Qualifiers: Chronic kidney disease stage: stage 4 (severe) Qualified Code(s): N18.4 - Chronic kidney disease, stage 4 (severe) Plan to address problem: patient is patient last 's visit was reconsulted (5) Seizure disorder Current Visit: Yes Status: Chronic Plan to address problem: continue IV Keppra.patient had a low blood sugar of 20 which may be responsible for the tonic clonic seizures witnessed by me in the emergency room along On PO Keppra (6) Hypoglycemia - resolved Current Visit: Yes Status: Acute Plan to address problem: (7) DVT prophylaxis Current Visit: Yes Status: Acute Plan to address problem: on Lovenox Disposition: DC-01 TO HOME OR SELFCARE Time spent for discharge: 33 minutes Core Measure Documentation - Palliative Care Palliative Care/ Comfort Measures: Not Applicable - Core Measures Any of the following diagnoses?: none Exam - Constitutional Vitals: Temp Pulse Resp BP Pulse Ox 98.0 F 87 16 129/75 96 11/24/17 07:28 11/24/17 07:28 11/24/17 07:28 11/24/17 07:28 11/24/17 07:28 General appearance: Present: no acute distress, well-nourished - EENT Eyes: Present: PERRL ENT: hearing intact, clear oral mucosa - Neck Neck: Present: supple, normal ROM - Respiratory Respiratory effort: normal Respiratory: bilateral: CTA - Cardiovascular Heart Sounds: Present: S1 & S2. Absent: rub, click - Extremities Extremities: pulses symmetrical, No edema Peripheral Pulses: within normal limits - Abdominal General gastrointestinal: Present: soft, non-tender, non-distended, normal bowel sounds Male genitourinary: Present: normal - Integumentary Integumentary: Present: clear, warm, dry - Musculoskeletal Musculoskeletal: gait normal, strength equal bilaterally - Psychiatric Psychiatric: appropriate mood/affect, intact judgment & insight - Neurologic Neurologic: CNII-XII intact, moves all extremities Plan Follow up with: SMITH SINGH MD [Primary Care Provider] - 7 Days Prescriptions: AtorvaSTATin [Lipitor] 10 mg PO QHS #30 tablet AtorvaSTATin 10 mg PO QHS #30 ALPRAZolam 0.25 mg PO Q12H PRN #14 PRN Reason: Anxiety Amoxicillin/Potassium Clav [Augmentin 875-125 Tablet] 1 each PO BID #10 tablet Aspirin [Aspirin BABY CHEW TAB] 81 mg FEEDTUBE QDAY #30 tab.chew Aspirin 325 mg FEEDTUBE DAILY #30 Azithromycin [Zithromax] 250 mg PO DAILY #4 tablet Carvedilol [Coreg] 12.5 mg PO Q12H #60 tablet levETIRAcetam [Keppra TAB] 500 mg PO BID #60 tablet Lyrica 50 mg PO Q8H PRN #90 PRN Reason: Pain [place] Rx Tablet 1 tab PO DAILY #30 Renagel 800 mg PO AC #90 Singulair 10 mg PO DAILY PRN #30 PRN Reason: Congestion Tessalon Perles 100 mg PO Q8H PRN #90 PRN Reason: Cough Tylenol /Codeine # 3 tab 30 mg PO Q6H PRN #14 PRN Reason: Pain
[2017-11-24] MEDS: PEPCID PO SCH (12:17)
[2017-11-24] MEDS ORDERED: SUBLIMAZE ONE (13:06)
[2017-11-24] MEDS ORDERED: NACL 0.9% 250ML 250 ML ONE (13:06)
[2017-11-24] MEDS ORDERED: XYLOCAINE 2% INFILTRATI ONE (13:06)
[2017-11-24] MEDS ORDERED: HEPARIN/NS 5000 UNIT/500ML(CATH LAB) 1,000 ML IR ONE (13:06)
[2017-11-24] MEDS ORDERED: HEPARIN 10,000 UNITS/10 ML ONE (13:06)
--- NOTE | 2017-11-24 13:11 | Progress Note ---
Assessment and Plan Advance Directives: Yes (full code) VTE prophylaxis?: Chemical Plan of care discussed with patient/family: Yes - Patient Problems (1) Right lower lobe pneumonia Current Visit: Yes Status: Acute Qualifiers: Pneumonia type: aspiration pneumonia Plan to address problem: Possible aspiration pneumonia secondary to his cerebrovascular accident. Continue with Rocephin and Zithromax. IV fluids. (2) Type 2 diabetes mellitus Current Visit: Yes Status: Chronic Qualifiers: Diabetes mellitus complication status: without complication Diabetes mellitus termite exterminator insulin use: with shelter use Qualified Code(s): E11.9 - Type 2 diabetes mellitus without complications; Z79.4 - senior care (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 of insulin; Z79.4 - senior care (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 of insulin; Z79.4 - superintendent marine oil terminal ( 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 of insulin; Z79.4 - superintendent marine oil terminal (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 of insulin Plan to address problem: continue with SSI (3) Hypertension Current Visit: Yes Status: Chronic Qualifiers: Hypertension type: essential hypertension Qualified Code(s): I10 - Essential (primary) hypertension Plan to address problem: patient on losartan 100 mg once a day (4) Chronic kidney disease Current Visit: Yes Status: Chronic Qualifiers: Chronic kidney disease stage: stage 4 (severe) Qualified Code(s): N18.4 - Chronic kidney disease, stage 4 (severe) Plan to address problem: patient neurologists at patient last visit was reconsulted (5) Seizure disorder Current Visit: Yes Status: Chronic Plan to address problem: continue IV Keppra. Patient had tonic clonic seizures in the emergency (6) Hypoglycemia - resolved Current Visit: Yes Status: Acute Plan to address problem: (7) DVT prophylaxis Current Visit: Yes Status: Acute Plan to address problem: on Lovenox Subjective Date of service: 11/23/17 (Pt was seen but note inadvetently omitted then.) Principal diagnosis: Aspiration Pneumonia, ESRD Interval history: No new complaint. Had HD today. Objective - Constitutional Vitals: Vital Signs - 12hr 11/24/17 11/24/17 04:51 07:28 Temperature 98.8 F 98.0 F Pulse Rate 82 87 Respiratory 22 16 Rate Blood Pressure 134/93 129/75 O2 Sat by Pulse 97 96 Oximetry General appearance: Present: no acute distress, well-nourished - EENT Eyes: PERRL, EOM intact - Neck Neck: supple, normal ROM - Respiratory Respiratory effort: normal Respiratory: bilateral: CTA - Breasts Breasts: deferred, normal - Cardiovascular Rhythm: regular Heart Sounds: Present: S1 & S2. Absent: gallop, rub Extremities: pulses intact, No edema, normal color, Full ROM - Gastrointestinal General gastrointestinal: Present: soft, non-tender, non-distended, normal bowel sounds - Integumentary Integumentary: clear, warm, dry - Musculoskeletal Musculoskeletal: 1, strength equal bilaterally - Neurologic Neurologic: moves all extremities - Psychiatric Psychiatric: memory intact, appropriate mood/affect, intact judgment & insight - Labs CBC & Chem 7: 11/25/17 05:55 11/25/17 05:55 Labs: Abnormal lab results 11/23/17 11/24/17 11/24/17 Range/Units 22:06 05:59 05:59 RBC 3.14 L (3.65-5.03) M/mm3 Hgb 9.1 L (11.8-15.2) gm/dl Hct 28.5 L (35.5-45.6) % RDW 16.5 H (13.2-15.2) % Lymph % (Auto) 37.6 H (13.4-35.0) % [place] % (Auto) 8.8 H (0.0-7.3) % Eos % (Auto) 7.5 H (0.0-4.3) % BUN 29 H (9-20) mg/dL Creatinine 4.2 H (0.8-1.5) mg/dL POC Glucose 161 H (70-105) Albumin 2.8 L (3.9-5) g/dL
[2017-11-24] MEDS ORDERED: CATHFLO ONE (13:16)
[2017-11-24] MEDS ORDERED: WATER FOR INJ (PF) 0 ML ONE (13:16)
[2017-11-24] MEDS: BABY ASPIRIN FEEDTUBE SCH (16:14)
[2017-11-24] MEDS: COREG PO SCH (16:14)
[2017-11-24] MEDS: KEPPRA PO SCH ×2 (16:14→21:51)
[2017-11-24] MEDS: ZITHROMAX PO SCH (16:15)
--- NOTE | 2017-11-24 18:17 | Procedure Note ---
Date of procedure: 11/24/17 Pre-op diagnosis: Elevated venous pressure through av fistula Post-op diagnosis: same Procedure: PROCEDURE: 1. Access left forearm fistula with a micropuncture sheath up-sized to a sheath. 2. Left AV fistulogram including central venogram and retrograde arterial inflow study. 3. Venous balloon angioplasty with 8x4 balloon. 4. Completion fistulogram. SURGEON: Toby Hernandez MD ANESTHESIA: Local with IV sedation. ESTIMATED BLOOD LOSS: Minimum. 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 Patient was stable to recovery room with good thrill in the fistula. OPERATIVE PROCEDURE: The patient was identified and brought to the woods laborer. After adequate IV sedation was obtained, the patient was prepped and draped in the usual sterile fashion in supine position over the entire upper extremity. The dialysis shunt was then accessed using a micropuncture needle after it was anesthetized with 1% buffered Lidocaine. Through this needle a wire was inserted. At this time, a 6F sheath was inserted over the guidewire. An upper extremity AV fistulogram with runoff was performed first by occluding the venous outflow. Contrast was refluxed into the arterial anastomosis. After this was completed, contrast was injected and followed throughout its entire length down to the central venous system. This showed the above findings. A wire was used to negotiate through the stenosis. A 8 mm balloon was selected and positioned over the stenosis and insufflated to nominal atmospheric pressure. This was held for 60 seconds. Waist was noted and broken. After this was completed, completion angiogram was performed which revealed good resolution of stenosis. At this time, all catheters, wires and sheaths were removed. The sheath access site was then sutured shut using a 4-0 Prolene suture in U-stitch fashion. The patient tolerated the procedure well and there were no complications noted. Anesthesia: local Surgeon: TOBY HERNANDEZ Estimated blood loss: minimal Condition: stable Disposition: floor
--- NOTE | 2017-11-24 18:22 | Consultation ---
History of Present Illness - Reason for Consult Consult date: 11/24/17 Dysfunctional left forearm access - History of Present Illness Reports difficulty access left forearm fistula on dialysis unit Also having elevated vneous pressures He denies any arm swelling Past History Past Medical History: anemia, dialysis, ESRD, hypertension, stroke Past Surgical History: Other (Left AVF placement) Medications and Allergies Allergies Allergy/AdvReac Type Severity Reaction Status Date / Time No Known Allergies Allergy Verified 11/21/17 00:51 Home Medications Medication Instructions Recorded Confirmed Last Taken Type ALPRAZolam 0.25 mg PO Q12H PRN #14 11/24/17 Unknown Rx Amoxicillin/Potassium Clav 1 each PO Q24H #5 tablet 11/24/17 Unknown Rx [Augmentin 500-125 Tablet] Aspirin 325 mg FEEDTUBE DAILY #30 11/24/17 Unknown Rx Aspirin [Aspirin BABY CHEW TAB] 81 mg FEEDTUBE QDAY #30 tab.chew 11/24/17 Unknown Rx AtorvaSTATin 10 mg PO QHS #30 11/24/17 Unknown Rx AtorvaSTATin [Lipitor] 10 mg PO QHS #30 tablet 11/24/17 Unknown Rx Azithromycin [Zithromax] 250 mg PO DAILY #4 tablet 11/24/17 Unknown Rx Carvedilol [Coreg] 12.5 mg PO Q12H #60 tablet 11/24/17 Unknown Rx Lyrica 50 mg PO Q8H PRN #90 11/24/17 Unknown Rx Pooja-Pippa Rx Tablet 1 tab PO DAILY #30 11/24/17 Unknown Rx Renagel 800 mg PO AC #90 11/24/17 Unknown Rx Singulair 10 mg PO DAILY PRN #30 11/24/17 Unknown Rx Tessalon Perles 100 mg PO Q8H PRN #90 11/24/17 Unknown Rx Tylenol /Codeine # 3 tab 30 mg PO Q6H PRN #14 11/24/17 Unknown Rx levETIRAcetam [Keppra TAB] 500 mg PO BID #60 tablet 11/24/17 Unknown Rx Active Meds: Active Medications Alprazolam (Xanax) 0.25 mg PO Q12H PRN PRN Reason: Anxiety Aspirin (Baby Aspirin) 81 mg FEEDTUBE QDAY [facility] Last Admin: 11/24/17 16:14 Dose: Not Given Atorvastatin Calcium (Lipitor) 10 mg PO QHS [facility] Last Admin: 11/23/17 22:38 Dose: 10 mg Azithromycin (Zithromax) 500 mg PO QDAY [facility] Last Admin: 11/24/17 16:15 Dose: Not Given Carvedilol (Coreg) 12.5 mg PO DAILY [facility] Last Admin: 11/24/17 16:14 Dose: Not Given Famotidine (Pepcid) 20 mg PO QDAY [facility] Last Admin: 11/24/17 12:17 Dose: 20 mg Sodium Chloride (Nacl 0.9%) 100 mls @ 999 mls/hr IV JYOTI PRN PRN Reason: Hypotension Ceftriaxone Sodium 1 gm/ (Sodium Chloride) 20 mls @ 20 mls/10 min IV Q24H [facility] Last Admin: 11/23/17 22:38 Dose: 20 mls/10 min Insulin Aspart (Novolog) 0 units SUB-Q ACHS [facility] PRN Reason: Protocol Last Admin: 11/24/17 11:30 Dose: Not Given Levetiracetam (Keppra) 500 mg PO BID [facility] Last Admin: 11/24/17 16:14 Dose: Not Given Review of Systems Constitutional: no fever Cardiovascular: no edema Respiratory: no cough Gastrointestinal: no abdominal pain Musculoskeletal: muscle weakness Integumentary: rash Neurological: no convulsions Hematologic/Lymphatic: no easy bleeding Exam - Constitutional Vitals: Temp Pulse Resp BP Pulse Ox 98.1 F 70 16 140/68 96 11/24/17 17:30 11/24/17 17:30 11/24/17 17:30 11/24/17 17:30 11/24/17 07:28 General appearance: Present: no acute distress - EENT Eyes: Present: EOM intact ENT: no ulcerations - Neck Neck: Present: normal ROM - Respiratory Respiratory effort: normal - Cardiovascular Rhythm: regular - Extremities Extremities: No edema - Abdominal General gastrointestinal: Present: soft, non-tender - Integumentary Integumentary: Present: clear, warm, dry - Musculoskeletal Musculoskeletal: generalized weakness - Psychiatric Psychiatric: appropriate mood/affect - Neurologic Neurologic: moves all extremities Results - Labs CBC & Chem 7: 11/24/17 05:59 11/24/17 05:59 Labs: Abnormal lab results 11/23/17 11/24/17 11/24/17 Range/Units 22:06 05:59 05:59 RBC 3.14 L (3.65-5.03) M/mm3 Hgb 9.1 L (11.8-15.2) gm/dl Hct 28.5 L (35.5-45.6) % RDW 16.5 H (13.2-15.2) % Lymph % (Auto) 37.6 H (13.4-35.0) % Carroll % (Auto) 8.8 H (0.0-7.3) % Eos % (Auto) 7.5 H (0.0-4.3) % BUN 29 H (9-20) mg/dL Creatinine 4.2 H (0.8-1.5) mg/dL POC Glucose 161 H (70-105) Albumin 2.8 L (3.9-5) g/dL Assessment and Plan Left forearm elevated venous pressures: Left forearm fistulogram today. Discussed with patient, consent obtained, keep NPO.
[2017-11-24] MEDS ORDERED: NACL 0.9 (PRIMING MACHINE ONLY DIALYSIS) MC ONE (19:00)
[2017-11-24] MEDS: cefTRIAXone 1 GM in NACL 0.9% 20 ML IV SCH (21:21)
--- NOTE | 2017-11-24 22:27 | Progress Note ---
Assessment and Plan Assessment and plan: 52M who presented with fever of 103, seizure and glc of <20 62 years male with history of end-stage renal disease on hemodialysis, hypertension diabetes and CVA, presents to the ER with fever of 1 day duration. No cough, shortness of breath, urinary symptoms. He stated that his initial temperature was 103.No chest pain.had seizures in the ER and was found to have a blood glucose of 20 which may have caused the seizures. No shortness of breath. No recent travel. Sepsis Right lower lobe pneumonia improved, cw abx Type 2 diabetes mellitus Patient was on high doses of insulin at home. That was the most likely cause of the hypoglycemia. All incidents have been discontinued. He receives it slower than Hospital, and had minimal needs for insulin. Therefore lifestyle control and diet is not recommended. Hypertension patient initiated on losartan 100 mg once a day End stage renal disease For fistulogram today, continue HD per nephrology Status epilepticus was provoked by hypoglycemia, no further work up is indicated, underlying cause has been managed Hypoglycemia - resolved Insulin was discontinued as stated above History Interval history: no cP, no sob, no fever, chills, nausea or focal weakness Hospitalist Physical - Constitutional Vitals: Temp Pulse Resp BP Pulse Ox 98.1 F 70 16 140/68 96 11/24/17 17:30 11/24/17 17:30 11/24/17 17:30 11/24/17 17:30 11/24/17 07:28 General appearance: Present: no acute distress - EENT Eyes: Present: PERRL ENT: hearing intact - Neck Neck: Present: supple - Respiratory Respiratory effort: normal Respiratory: bilateral: CTA - Cardiovascular Rhythm: regular Heart Sounds: Present: S1 & S2 - Extremities Extremities: no ischemia Peripheral Pulses: within normal limits - Abdominal General gastrointestinal: soft, non-tender - Integumentary Integumentary: Present: clear, warm - Psychiatric Psychiatric: appropriate mood/affect - Neurologic Neurologic: CNII-XII intact Results - Labs CBC & Chem 7: 11/24/17 05:59 11/24/17 05:59 Labs: Laboratory Last Values WBC 4.7 K/mm3 (4.5-11.0) 11/24/17 05:59 RBC 3.14 M/mm3 (3.65-5.03) L 11/24/17 05:59 Hgb 9.1 gm/dl (11.8-15.2) L 11/24/17 05:59 Hct 28.5 % (35.5-45.6) L 11/24/17 05:59 MCV 91 fl (84-94) 11/24/17 05:59 MCH 29 pg (28-32) 11/24/17 05:59 MCHC 32 % (32-34) 11/24/17 05:59 RDW 16.5 % (13.2-15.2) H 11/24/17 05:59 Plt Count 155 K/mm3 (140-440) 11/24/17 05:59 Lymph % (Auto) 37.6 % (13.4-35.0) H 11/24/17 05:59 Traverse % (Auto) 8.8 % (0.0-7.3) H 11/24/17 05:59 Eos % (Auto) 7.5 % (0.0-4.3) H 11/24/17 05:59 Baso % (Auto) 1.3 % (0.0-1.8) 11/24/17 05:59 Lymph # 1.8 K/mm3 (1.2-5.4) 11/24/17 05:59 Traverse # 0.4 K/mm3 (0.0-0.8) 11/24/17 05:59 Eos # 0.3 K/mm3 (0.0-0.4) 11/24/17 05:59 Baso # 0.1 K/mm3 (0.0-0.1) 11/24/17 05:59 Seg Neutrophils % 44.8 % (40.0-70.0) 11/24/17 05:59 Seg Neutrophils # 2.1 K/mm3 (1.8-7.7) 11/24/17 05:59 Sodium 144 mmol/L (137-145) 11/24/17 05:59 Potassium 3.7 mmol/L (3.6-5.0) 11/24/17 05:59 Chloride 104.2 mmol/L (98-107) 11/24/17 05:59 Carbon Dioxide 27 mmol/L (22-30) 11/24/17 05:59 Anion Gap 17 mmol/L 11/24/17 05:59 BUN 29 mg/dL (9-20) H 11/24/17 05:59 Creatinine 4.2 mg/dL (0.8-1.5) H 11/24/17 05:59 Estimated GFR 18 ml/min 11/24/17 05:59 BUN/Creatinine Ratio 7 % 11/24/17 05:59 Glucose 82 mg/dL (75-100) 11/24/17 05:59 POC Glucose 96 (70-105) 11/24/17 11:51 Lactic Acid 0.60 mmol/L (0.7-2.0) L 11/21/17 03:33 Calcium 8.7 mg/dL (8.4-10.2) 11/24/17 05:59 Phosphorus 2.80 mg/dL (2.5-4.5) D 11/23/17 05:41 Magnesium 1.50 mg/dL (1.7-2.3) L 11/23/17 05:41 Total Bilirubin 0.30 mg/dL (0.1-1.2) 11/24/17 05:59 AST 9 units/L (5-40) 11/24/17 05:59 ALT 12 units/L (7-56) 11/24/17 05:59 Alkaline Phosphatase 53 units/L (35-129) 11/24/17 05:59 Total Protein 6.5 g/dL (6.3-8.2) 11/24/17 05:59 Albumin 2.8 g/dL (3.9-5) L 11/24/17 05:59 Albumin/Globulin Ratio 0.8 % 11/24/17 05:59 PTH Intact 38.15 pg/mL (15-65) 11/22/17 05:15
[2017-11-25] MEDS: NOVOLOG SUB-Q SCH ×3 (04:48→11:52)
[2017-11-25 06:53] LABS: Basophils # (Auto) 0.1 K/mm3 (0.0-0.1); Basophils % (Auto) 1.4 % (0.0-1.8); Eosinophils # (Auto) 0.3 K/mm3 (0.0-0.4); Eosinophils % (Auto) 7.2 % (0.0-4.3); Hematocrit 32.3 % (35.5-45.6); Hemoglobin 10.4 gm/dl (11.8-15.2); Lymphocytes % (Auto) 23.2 % (13.4-35.0); Mean Corpuscular HGB Conc 32 % (32-34); Mean Corpuscular Hemoglobin 29 pg (28-32); Mean Corpuscular Volume 90 fl (84-94); Monocytes # (Auto) 0.4 K/mm3 (0.0-0.8); Monocytes % (Auto) 8.1 % (0.0-7.3); Platelet Count 168 K/mm3 (140-440); Red Blood Count 3.59 M/mm3 (3.65-5.03); Red Cell Distribution Width 16.6 % (13.2-15.2)
[2017-11-25 07:18] LABS: Calcium 9.3 mg/dL (8.4-10.2)
[2017-11-25 07:43] VITALS: BP 125/78
--- NOTE | 2017-11-25 08:44 | Progress Note ---
Assessment and Plan (1) Hypoglycemia Current Visit: Yes Status: Acute Plan to address problem: resolved As per primary team (2) Right lower lobe pneumonia Current Visit: Yes Status: Acute Qualifiers: Pneumonia type: aspiration pneumonia Plan to address problem: On ABx S/p Chest X Ray on 11/21/17 showed extensive pneumonia involving much of the right lung with small right sided pleural effusion Influenza A and B negative As per primary team (3) ESRD on hemodialysis Current Visit: Yes Status: Acute Plan to address problem: no indication for HD today Ok to be discharged from renal standpoint, he will cont HD as an outpatient in [facility] every TTS Renally dose medications Obtain daily weight Strict intake and output (4) Hypokalemia Current Visit: Yes Status: Acute Plan to address problem: will adjust dialysate bath (5) Seizure disorder Current Visit: Yes Status: Chronic Plan to address problem: On Keppra As per primary team (6) Type 2 diabetes mellitus Current Visit: Yes Status: Chronic Qualifiers: Diabetes mellitus complication status: without complication Diabetes mellitus shelter insulin use: with intermediate school teacher use Qualified Code(s): E11.9 - Type 2 diabetes mellitus without complications; Z79.4 - [facility] (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 of insulin; Z79.4 - intermodal 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 (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 of insulin; Z79.4 - intermodal 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 ( 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 of insulin; Z79.4 - intermodal 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 Subjective Date of service: 11/25/17 Principal diagnosis: Aspiration Pneumonia, ESRD Interval history: tolerated HD and fistuloram yesterday Objective - Vital Signs Vital signs: Vital Signs - 12hr 11/24/17 11/25/17 11/25/17 21:08 00:26 04:21 Temperature 98.8 F 98.7 F 98.4 F Pulse Rate 79 99 H 87 Respiratory 18 16 18 Rate Blood Pressure 134/76 118/78 117/71 O2 Sat by Pulse 99 97 97 Oximetry 11/25/17 07:12 Temperature 99.0 F Pulse Rate 83 Respiratory 20 Rate Blood Pressure 125/78 O2 Sat by Pulse 99 Oximetry - General Appearance General appearance: well-developed, well-nourished EENT: ATNC, PERRL, mucous membranes moist Neck: no JVD, no carotid bruit Respiratory: Present: Clear to Ascultation. Absent: Rales, Ronchi Cardiology: regular, S1S2 Gastrointestinal: normoactive bowel sounds, no tenderness, no distended, no guarding Integumentary: no rash, warm and dry Neurologic: no focal deficit, no asterixis, alert and oriented x3 Musculoskeletal: other (no edema in BLE) Psychiatric: mood/affect appropriate, cooperative - Lab 11/25/17 05:55 11/25/17 05:55 Most recent lab results Calcium 9.3 mg/dL (8.4-10.2) 11/25/17 05:55 Phosphorus 2.80 mg/dL (2.5-4.5) D 11/23/17 05:41 Magnesium 1.50 mg/dL (1.7-2.3) L 11/23/17 05:41
--- NOTE | 2017-11-25 08:52 | Discharge Summary ---
Providers - Providers Date of Admission: 11/21/17 02:19 Date of discharge: 11/25/17 Attending physician: MAUDE GARCIA MD 11/21/17 08:02 Consult to Physician [CONS] Routine Consulting Provider: SANDHYA BOWEN Reason For Exam: ESRD Place consult to:: DR. WESLEY Notified:: DR. WESLEY Phone number called:: [phone] Was contact made?: Yes If yes, spoke with:: DR. WESLEY Time called:: 10:23 Comment:: WON NOTIFIED 11/22/17 12:43 Consult to Physician [CONS] Routine Consulting Provider: CELESTINO SENIOR Reason For Exam: malfunctioned AVF Place consult to:: Dr Doll Notified:: china Mercado Phone number called:: [phone] Was contact made?: Yes If yes, spoke with:: Dr Doll Time called:: 17:55 Primary care physician: SMITH SINGH Hospitalization Reason for admission: Hypoglycemia, Right lower lobe pneumonia, ESRD on HD Condition: Stable Pertinent studies: CXR right lung pneumonia with small right pleural effusion. Hospital course: 52 year old male with history of end-stage renal disease on hemodialysis, hypertension diabetes and CVA, presents to the ER with fever of 1 day duration. No cough, shortness of breath, urinary symptoms. He stated that his initial temperature was 103.No chest pain.had seizures in the ER and was found to have a blood glucose of 20 which may have caused the seizures. No shortness of breath. No recent travel. CXR showed right lower lobe pneumonia and patient was treated with appropriate IV antibiotics and patient showed marked improvement and Po antibiotics to be continued as an O/P. Nephrology was following him and his dialysis was continued as scheduled. Patient was on insulin as an O/P and his glucose was 20 in the ED and had an episode of hypoglycemia induced seizure. patient's blood sugar was with in normal limit without insulin and patient advised to discontinue to take insulin and has follow up with PCP for further management. Patient was hemodynamically stable at the time of discharge. Appropriate scripts were given at the time of discharge. Disposition: - TO HOME OR SELFCARE Time spent for discharge: 32 minutes - Discharge Diagnoses (1) ESRD on hemodialysis Status: Chronic (2) Hypoglycemia Status: Acute (3) Right lower lobe pneumonia Status: Acute Qualifiers: Pneumonia type: aspiration pneumonia Core Measure Documentation - Palliative Care Palliative Care/ Comfort Measures: Not Applicable - Core Measures Any of the following diagnoses?: none Exam - Physical Exam Narrative exam: Not in cardiopulmonary distress. The patient appeared well nourished and normally developed. Vital signs as documented. Head exam is unremarkable. No scleral icterus . Neck is without jugular venous distension, thyromegaly, or carotid bruits. Lungs are clear to auscultation. Cardiac exam reveals regular rate and Rhythm. First and second heart sounds normal. No murmurs, rubs or gallops. Abdominal exam reveals normal bowel sounds, no masses, no organomegaly and no aortic enlargement. Extremities are nonedematous and both femoral and pedal pulses are normal. HEART NURSE: Alert and oriented 3. No focal weakness. - Constitutional Vitals: Temp Pulse Resp BP Pulse Ox 99.0 F 83 20 125/78 99 11/25/17 07:12 11/25/17 07:12 11/25/17 07:12 11/25/17 07:12 11/25/17 07:12 Plan Activity: no restrictions Weight Bearing Status: Full Weight Bearing Diet: low cholesterol, low salt Follow up with: SMITH SINGH MD [Primary Care Provider] - 7 Days Prescriptions: AtorvaSTATin [Lipitor] 10 mg PO QHS #30 tablet AtorvaSTATin 10 mg PO QHS #30 ALPRAZolam 0.25 mg PO Q12H PRN #14 PRN Reason: Anxiety Amoxicillin/Potassium Clav [Augmentin 500-125 Tablet] 1 each PO Q24H #5 tablet Aspirin [Aspirin BABY CHEW TAB] 81 mg FEEDTUBE QDAY #30 tab.chew Aspirin 325 mg FEEDTUBE DAILY #30 Azithromycin [Zithromax] 250 mg PO DAILY #4 tablet Carvedilol [Coreg] 12.5 mg PO Q12H #60 tablet levETIRAcetam [Keppra TAB] 500 mg PO BID #60 tablet Lyrica 50 mg PO Q8H PRN #90 PRN Reason: Pain Pooja-Pippa Rx Tablet 1 tab PO DAILY #30 Renagel 800 mg PO AC #90 Singulair 10 mg PO DAILY PRN #30 PRN Reason: Congestion Tessalon Perles 100 mg PO Q8H PRN #90 PRN Reason: Cough Tylenol /Codeine # 3 tab 30 mg PO Q6H PRN #14 PRN Reason: Pain
[2017-11-25] MEDS: COREG PO SCH (09:26)
[2017-11-25] MEDS: ZITHROMAX PO SCH (09:26)
[2017-11-25] MEDS: PEPCID PO SCH (09:26)
[2017-11-25] MEDS: KEPPRA PO SCH (09:26)
[2017-11-25] MEDS: BABY ASPIRIN FEEDTUBE SCH (09:27)
== END 2017-11-25 16:00 | disposition home or self-care (01) | DRG 871 ==
LOC: ED 00:25 → 3A 02:19
PROVIDERS: ADMIT Internal Medicine; ATTEND Internal Medicine
PROC: 5A1D70Z Performance of Urinary Filtration, Intermittent, Less than 6 Hours Per Day (ICD-10-PCS; 2017-11-22)
PROC: 5A1D70Z Performance of Urinary Filtration, Intermittent, Less than 6 Hours Per Day (ICD-10-PCS; principal; 2017-11-24)
PROC: B51W1ZZ Fluoroscopy of Dialysis Shunt/Fistula using Low Osmolar Contrast (ICD-10-PCS; 2017-11-24)
DX: A41.9 Sepsis, unspecified organism (principal); J18.1 Lobar pneumonia, unspecified organism; N18.6 End stage renal disease; I12.0 Hypertensive chronic kidney disease with stage 5 chronic kidney disease or end stage renal disease; E11.22 Type 2 diabetes mellitus with diabetic chronic kidney disease; G40.901 Epilepsy, unspecified, not intractable, with status epilepticus; E11.649 Type 2 diabetes mellitus with hypoglycemia without coma; Z87.891 Personal history of nicotine dependence; Z99.2 Dependence on renal dialysis; Z82.49 Family history of ischemic heart disease and other diseases of the circulatory system; Z86.73 Personal history of transient ischemic attack (TIA), and cerebral infarction without residual deficits; Z79.82 Long term (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 of aspirin
CPT/HCPCS: 36415; 36902; 71010; 71020; 80048; 80053; 82140; 82962; 83735; 83970; 84100; 85025; 85027; 87040; 87400; 93005; 93010; 96365; 96375; 99285; A9270-GY; C1725; C1769; C1894; J0456; J0696; J1644; J1815; J1953; J2060; J2543; J2997; J3010; J7030; J7050; J7070; Q9967

== ENCOUNTER 2018-12-07 06:19 | Day surgery (SDC) | payer MEDICARE ==
[2018-12-07] MEDS ORDERED: NACL 0.9% 500 ML 500 ML IV SCH (07:00)
[2018-12-07 07:01] LABS: Basophils # (Auto) 0.1 K/mm3 (0.0-0.1); Basophils % (Auto) 1.1 % (0.0-1.8); Eosinophils # (Auto) 0.1 K/mm3 (0.0-0.4); Eosinophils % (Auto) 2.1 % (0.0-4.3); Hematocrit 43.1 % (35.5-45.6); Hemoglobin 14.1 gm/dl (11.8-15.2); Lymphocytes # (Auto) 1.6 K/mm3 (1.2-5.4); Lymphocytes % (Auto) 31.2 % (13.4-35.0); Mean Corpuscular HGB Conc 33 % (32-34); Mean Corpuscular Volume 89 fl (84-94); Monocytes # (Auto) 0.4 K/mm3 (0.0-0.8); Monocytes % (Auto) 8.5 % (0.0-7.3); Platelet Count 192 K/mm3 (140-440); Red Blood Count 4.86 M/mm3 (3.65-5.03); Red Cell Distribution Width 13.6 % (13.2-15.2)
[2018-12-07 07:12] LABS: INR 0.96 (0.87-1.13)
[2018-12-07 07:13] LABS: Partial Thromboplastin Time 32.4 Sec. (24.2-36.6)
[2018-12-07 07:21] LABS: Calcium 9.6 mg/dL (8.4-10.2)
[2018-12-07] MEDS ORDERED: ECOTRIN PO ONE (08:00)
[2018-12-07] MEDS ORDERED: HEPARIN/NS 5000 UNIT/500ML(CATH LAB) 1,000 ML IR ONE (08:12)
[2018-12-07] MEDS ORDERED: NITROGLYCERIN SYRINGE 3 ML ONE (08:13)
[2018-12-07] MEDS ORDERED: CALAN ONE (08:13)
[2018-12-07] MEDS ORDERED: HEPARIN 10,000 UNITS/10 ML ONE (08:13)
[2018-12-07] MEDS ORDERED: VERSED ONE (08:13)
[2018-12-07] MEDS ORDERED: XYLOCAINE 2% INFILTRATI ONE (08:13)
[2018-12-07] MEDS ORDERED: SUBLIMAZE ONE (08:14)
--- NOTE | 2018-12-07 09:04 | Short Stay Summary ---
Short Stay Documentation Date of service: 12/07/18 - History H&P: obtained from office - Allergies and Medications Current Medications: Allergies No Known Allergies Allergy (Verified 11/21/17 00:51) Home Medications Medication Instructions Recorded Confirmed Last Taken Type ALPRAZolam [Xanax TAB] 0.25 mg PO BID PRN 12/07/18 12/07/18 12/06/18 History 0.25mg Carvedilol [Coreg] 3.125 mg PO BID 12/07/18 12/07/18 12/06/18 History 3.125mg Folic Acid/Vit B Complex and C 1 tab PO DAILY 12/07/18 12/07/18 12/06/18 History [Renal-Pippa Tablet] 1 tab Losartan [Cozaar] 25 mg PO DAILY 12/07/18 12/07/18 12/06/18 History 25mg Zolpidem [Ambien] 5 mg PO HS PRN 12/07/18 12/07/18 12/05/18 History 5mg levETIRAcetam [Levetiracetam] 500 mg PO BID 12/07/18 12/07/18 12/06/18 History 500mg Active Medications Sodium Chloride (Nacl 0.9% 500 Ml) 500 mls @ 50 mls/hr IV DIRECT MULU Stop: 12/07/18 16:59 - Brief post op/procedure progress note Date of procedure: 12/07/18 Pre-op diagnosis: cardiomyopathy Post-op diagnosis: same Procedure: see report Anesthesia: local Estimated blood loss: none - Disposition Condition at discharge: Good Disposition: [id number] TO HOME OR SELFCARE - Discharge Diagnoses (1) Cardiomyopathy Status: Chronic Qualifiers: Cardiomyopathy type: dilated Qualified Code(s): I42.0 - Dilated cardiomyopathy (2) ESRD on hemodialysis Status: Chronic (3) Hypertension Status: Chronic Qualifiers: Hypertension type: essential hypertension (4) Seizure disorder Status: Chronic (5) Type 2 diabetes mellitus Status: Chronic Qualifiers: Diabetes 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
--- NOTE | 2018-12-07 09:15 | Cardiac Catherization Report ---
LEFT HEART CATHETERIZATION ORDERING PHYSICIAN: Ray Patel MD CLINICAL INFORMATION: This is a 53-year-old -[place] gentleman with end-stage renal disease, on hemodialysis, also hypertension, cholesterol, cardiomyopathy is here for preoperative evaluation prior to a renal transplant. Stress test showed fixed inferior apical defect. He has known EF on echocardiogram 35-40%. So, left heart catheterization performed with moderate sedation supervised 0.5 mg Versed and 25 mcg of fentanyl. Total sedation time was 60 minutes staring 8:44 a.m. finishing 9:00 a.m. Left heart catheterization performed via the right radial artery, sterile technique, local anesthesia, 6-Gambian radial sheath inserted. Left system engaged with JL3.5 catheter. Left main is large and patent, bifurcates into large LAD, is patent from proximally and distally. Diagonal 1 and diagonal 2 are [id number] caliber vessel, patent. Circumflex and AV groove is a large caliber vessel that is patent. OM1 is a medium caliber vessel, it is patent. OM2 is a [id number] caliber vessel, patent. RCA engaged with JR4 catheter, is a large dominant vessel, patent from proximally and distally. PDA is a medium caliber vessel, patent. LV gram done in MAIDA and PEREYRA view shows mild to moderate LV dysfunction, EF 40%. LVEDP is 7 mmHg, LV is 108/7, aortic is 108/65. No gradient across the aortic valve on pullback. 5-Gambian catheters were taken over guidewire, 6-Gambian radial sheath was discontinued. Radial band applied. No hematoma, no bleeding. SUMMARY: 1. Normal coronaries, right dominant system. 2. Mild to moderate LV dysfunction, EF approximately 40%. 3. Normal left end-diastolic pressure. 4. Nonischemic cardiomyopathy. Continue medical management. Discussed this in detail with the patient. JOB# [id number] ANABEL/ESTELLA
[2018-12-07 13:01] VITALS: BP 128/55
== END 2018-12-07 12:45 | disposition home or self-care (01) ==
LOC: CATHLABREC 06:19
PROVIDERS: ATTEND Internal Medicine
DX: I13.2 Hypertensive heart and chronic kidney disease with heart failure and with stage 5 chronic kidney disease, or end stage renal disease (principal); I50.9 Heart failure, unspecified; N18.6 End stage renal disease; I42.9 Cardiomyopathy, unspecified; E78.00 Pure hypercholesterolemia, unspecified; F41.9 Anxiety disorder, unspecified; Z79.899 Other long term (current) drug therapy; Z99.2 Dependence on renal dialysis; Z87.891 Personal history of nicotine dependence; Z86.73 Personal history of transient ischemic attack (TIA), and cerebral infarction without residual deficits; Z98.890 Other specified postprocedural states
CPT/HCPCS: 36415; 80048; 85025; 85610; 85730; 93005; 93010; 93458; 99156; C1894; J1644; J2250; J3010; J7040; Q9967